=== PATIENT | male | born 1995 | race African-American/Black ===

== ENCOUNTER 2017-06-21 13:21 | Emergency (ER) | payer BC, OTHER ==
[~2017-06-21] VITALS: Ht 200.7 cm; Wt 136.4 kg
[~2017-06-21 13:21] MED LIST: PREDNISONE20 MG PO
[2017-06-21 13:34] VITALS: BP 145/78; PULSE 97; TEMP 98.2
[2017-06-21 16:00] LABS: BASO % 0.5 % (0.0-2.0); EOS # 0.3 (0.0-0.7); EOS % 4.2 % (0-4.0); GRAN % 51.8 % (42.2-75.2); HEMATOCRIT 50.2 % (42.0-52.0); HEMOGLOBIN 17.3 g/dl (13.5-18.0); LYMPH # 2.8 (1.2-3.4); LYMPH % 36.8 % (20.0-51.0); MEAN CELL VOLUME 84 fl (80.0-100.0); MEAN CORPUSCULAR HEMOGLOBIN 29 pg (27.0-31.0); MEAN CORPUSCULAR HGB CONC 35 g/dl (33.0-37.0); MEAN PLATELET VOLUME 9.5 fl (7.4-10.4); MONO # 0.5 (0.1-0.6); MONO % 6.4 % (1.7-9.3); PLATELET COUNT 244 K/mm3 (130-400); RED BLOOD COUNT 5.97 M/mm3 (4.20-5.60); REDCELL DISTRIBUTION WIDTH-CV 12.8 % (11.5-14.5)
[2017-06-21 16:14] LABS: C-REACTIVE PROTEIN < 0.5 mg/dL (0.0-0.9); CREATINE KINASE 412 U/L (55-170)
[2017-06-21 16:25] LABS: ERYTHROCYTE SEDIMENTATION RATE 5 mm/hr (0-15)
[2017-06-21 17:12] LABS: COLLECTION METHOD CLEAN CATCH
[2017-06-21 17:30] LABS: MUCOUS Present /lpf; PH 5 (5-8); SQUAMOUS EPITHELIAL None Seen /hpf; URINE APPEARANCE Clear; URINE BACTERIA None Seen /hpf; URINE BILIRUBIN Negative (NEGATIVE); URINE BLOOD Negative (NEGATIVE); URINE COLOR Yellow; URINE GLUCOSE Negative (NEGATIVE); URINE KETONE Negative (NEGATIVE); URINE LEUKOCYTE ESTERASE Negative (NEGATIVE); URINE NITRATE Negative (NEGATIVE); URINE PROTEIN(semi-quant) Negative (NEGATIVE); URINE RBC 0-2 /hpf; URINE UROBILINOGEN Negative (NEGATIVE)
== END 2017-06-21 17:39 | disposition home or self-care (01) ==
LOC: COL.ER 13:21
PROVIDERS: Physician Assistant
DX: M79.641 Pain in right hand (principal)

== ENCOUNTER 2017-07-26 09:51 | Emergency (ER) | payer OTHER ==
[~2017-07-26] VITALS: Ht 200.7 cm; Wt 136.4 kg
[2017-07-26 09:55] VITALS: BP 153/84; TEMP 98.3
[2017-07-26] MEDS ORDERED: CRUTCHES MC (10:50)
[2017-07-26] MEDS ORDERED: NORCO 325 MG-51 TAB PO (10:50)
[2017-07-26 11:01] VITALS: PULSE 80
== END 2017-07-26 11:11 | disposition home or self-care (01) ==
LOC: COL.ER 09:51
DX: S93.401A Sprain of unspecified ligament of right ankle, initial encounter (principal); F17.210 Nicotine dependence, cigarettes, uncomplicated; X50.0XXA Overexertion from strenuous movement or load, initial encounter